=== PATIENT | female | born 1955 | race Caucasian/White ===

== ENCOUNTER 2024-06-08 08:48 | Emergency (ER) | payer BC ==
[~2024-06-08] VITALS: Ht 152.4 cm; Wt 68.0 kg
[2024-06-08] MEDS ORDERED: AMOXICILLIN-CLAVUL 875-125MG TABLET ONE (09:51)
[2024-06-08] MEDS ORDERED: IBUPROFEN 400 MG TABLET ONE (09:51)
[2024-06-08] MEDS: AMOXICILLIN-CLAVUL 875-125MG TABLET PO ONE (09:52)
[2024-06-08] MEDS: IBUPROFEN 400 MG TABLET PO ONE (09:53)
[2024-06-08] MEDS ORDERED: AMOX-430 PO (09:57)
[2024-06-08] MEDS ORDERED: IBUP-1953 PO (09:57)
[2024-06-08 10:23] VITALS: BP 121/81; O2SAT 99
== END 2024-06-08 10:24 | disposition home or self-care (01) ==
LOC: ER 08:48
DX: H04.329 Acute dacryocystitis of unspecified lacrimal passage (principal); E11.9 Type 2 diabetes mellitus without complications; Z79.899 Other long term (current) drug therapy
CPT/HCPCS: A4606; A4663